=== PATIENT | male | born 1985 | race Caucasian/White ===

== ENCOUNTER 2022-11-08 18:54 | Emergency (ER) | payer OTHER ==
[~2022-11-08] VITALS: Ht 185.4 cm; Wt 91.0 kg
[2022-11-08 19:05] VITALS: BP 139/80
[2022-11-08] MEDS ORDERED: FLUORESCEIN SODIUM 1MG/STRIP RIGHTEYE ONE (22:45)
[2022-11-08] MEDS ORDERED: TETRACAINE 0.5% OPHTH DROPS 4ML RIGHTEYE ONE (22:45)
== END 2022-11-09 00:30 | disposition home or self-care (01) ==
LOC: ER 18:54
DX: H53.8 Other visual disturbances (principal); H43.11 Vitreous hemorrhage, right eye
CPT/HCPCS: 76512; 99283